=== PATIENT | male | born 1955 | race Caucasian/White ===

== ENCOUNTER 2022-02-16 19:26 | Inpatient (IN) | payer MEDICARE, OTHER ==
[2022-02-16] MEDS ORDERED: Vancomycin 1 GM/200 ML BAG ONE (20:13)
[2022-02-16] MEDS ORDERED: Dexamethasone 10 MG/ML VIAL ONE (20:13)
[2022-02-16 20:32] LABS: #Basophils 0.1 thou/uL (0.0-0.2); #Eosinphils 0.3 thou/uL (0.0-0.7); #Lymphocytes 3.1 thou/uL (1.20-3.40); #Monocytes 1.2 thou/uL (0.11-0.59); #Neutrophils 7.9 thou/uL (1.40-6.50); %Basophils 0.8 % (0.0-1.0); %Eosinophils 2.8 % (0.0-10.0); %Lymphocytes 24.6 % (21.0-51.0); %Monocytes 9.4 % (0.0-10.0); %Neutrophils 62.5 % (42.0-75.0); Hemoglobin 14.3 g/dL (14.0-18.0); Mean Corpuscular HGB CONC 33.2 g/dL (32.0-36.0); Mean Corpuscular Hemoglobin 31.8 pg (27.0-31.0); Platelet Count 247 thou/uL (130-400); RBC Distribution Width 11.9 % (11.5-14.5); Red Blood Cell (RBC) Count 4.51 mill/uL (4.70-6.10); White Blood Cell (WBC) Count 12.7 thou/uL (4.8-10.8)
[2022-02-16 20:42] LABS: PTT 30.5 sec (22.9-36.1); Prothrombin Time 12.9 sec (12.0-14.7)
[2022-02-16 20:55] LABS: ALT (SGPT) 11 U/L (8-55); AST (SGOT) 16 U/L (5-34); Albumin 3.9 g/dL (3.4-4.8); Alkaline Phosphatase 55 U/L (40-110); Anion Gap 12 mmol/L (10-20); BUN (Urea Nitrogen) 13 mg/dL (8.4-25.7); Bilirubin, Total 1.4 mg/dL (0.2-1.2); Calc. Creatinine Clearance 0 mL/min (70-130); Calcium 9.2 mg/dL (7.8-10.44); Carbon Dioxide 25 mmol/L (23-31); Globulin 3.7 g/dL (2.4-3.5); Glucose 117 mg/dL (80-115); Protein, Total 7.6 g/dL (5.8-8.1); Sodium 137 mmol/L (136-145)
[2022-02-16 21:02] LABS: Chloride 104 mmol/L (98-107)
[2022-02-16 21:21] LABS: SARS-CoV-2 NAA Rapid Test Not Detected (NotDetected)
[2022-02-16] MEDS ORDERED: Morphine 2 MG/ML VIAL SLOW IVP PRN (21:51)
[2022-02-16] MEDS ORDERED: hydrALAZINE 20 MG/ML VIAL SLOW IVP PRN (21:51)
[2022-02-16] MEDS ORDERED: Bisacodyl 5 MG TAB PO PRN (21:53)
[2022-02-16] MEDS ORDERED: Ondansetron PF 4 MG/2 ML Vial IVP PRN (21:53)
[2022-02-16] MEDS ORDERED: Acetaminophen 325 MG TAB PO PRN (21:53)
[2022-02-16] MEDS ORDERED: Zolpidem Tartrate 5 MG TAB PO PRN (21:53)
[2022-02-16] MEDS ORDERED: HYDROcodone/Acetaminophen 5/325 mg Tablet PO PRN (21:53)
[2022-02-16] MEDS ORDERED: Amlodipine 10 MG TAB PO SCH (22:00)
[2022-02-16] MEDS ORDERED: Cefepime 2 GM VIAL ONE (22:03)
[2022-02-16 22:58] VITALS: BMI 30.3
[2022-02-16] MEDS ORDERED: Enoxaparin Sodium 30 MG/0.3 ML SYRINGE SC SCH (23:15)
[2022-02-16] MEDS: Sodium Chloride 0.9% 1,000 ML IV SCH (23:28)
[2022-02-17 05:40] LABS: #Monocytes 0.1 thou/uL (0.11-0.59); #Neutrophils 5.7 thou/uL (1.40-6.50); %Basophils 0.3 % (0.0-1.0); %Eosinophils 0.2 % (0.0-10.0); %Lymphocytes 15.1 % (21.0-51.0); %Monocytes 0.7 % (0.0-10.0); %Neutrophils 83.7 % (42.0-75.0); Hemoglobin 14.7 g/dL (14.0-18.0); Mean Corpuscular HGB CONC 32.7 g/dL (32.0-36.0); Mean Corpuscular Hemoglobin 31.4 pg (27.0-31.0); Mean Corpuscular Volume 96.1 fL (78.0-98.0); Mean Platelet Volume 7.4 fL (7.4-10.4); Platelet Count 227 thou/uL (130-400); RBC Distribution Width 11.7 % (11.5-14.5); Red Blood Cell (RBC) Count 4.68 mill/uL (4.70-6.10); White Blood Cell (WBC) Count 6.8 thou/uL (4.8-10.8)
[2022-02-17 05:45] LABS: ALT (SGPT) 11 U/L (8-55); AST (SGOT) 14 U/L (5-34); Albumin 3.9 g/dL (3.4-4.8); Alkaline Phosphatase 57 U/L (40-110); Anion Gap 13 mmol/L (10-20); BUN (Urea Nitrogen) 15 mg/dL (8.4-25.7); Bilirubin, Total 0.9 mg/dL (0.2-1.2); Calc. Creatinine Clearance 101 mL/min (70-130); Calcium 9.3 mg/dL (7.8-10.44); Carbon Dioxide 21 mmol/L (23-31); Chloride 106 mmol/L (98-107); Globulin 3.6 g/dL (2.4-3.5); Glucose 180 mg/dL (80-115); Potassium 4.5 mmol/L (3.5-5.1); Protein, Total 7.5 g/dL (5.8-8.1); Sodium 135 mmol/L (136-145)
[2022-02-17] MEDS: Vancomycin HCl 1.5 GM in Sodium Chloride 0.9% 250 ML 300 ML IVPB SCH ×2 (06:57→17:58)
[2022-02-17] MEDS ORDERED: Dexamethasone 10 MG in Sodium Chloride 0.9% 50 ML IVPB SCH (09:00)
[2022-02-17] MEDS: Losartan 25 MG TAB PO SCH (09:22)
[2022-02-17] MEDS: Cefepime 1 GM in Sodium Chloride 0.9% 100 ML IVPB SCH ×2 (09:23→21:09)
[2022-02-17] MEDS: Enoxaparin Sodium 30 MG/0.3 ML SYRINGE SC SCH (09:23)
[2022-02-17] MEDS: Famotidine 20 MG TAB PO SCH ×2 (09:23→21:10)
[2022-02-17] MEDS: Amlodipine 10 MG TAB PO SCH (09:23)
[2022-02-17] MEDS ORDERED: Lidocaine 1% w/Epinephrine 1:100K 20 ML VIAL ONE (11:19)
[2022-02-17] MEDS ORDERED: AFRIN NASAL MIST 15 ML BOT ONE (11:19)
[2022-02-17] MEDS ORDERED: fentaNYL Citrate/PF 100 MCG/2 ML SYRINGE ONE (11:24)
[2022-02-17] MEDS ORDERED: Ondansetron PF 4 MG/2 ML Vial ONE (11:57)
[2022-02-17] MEDS ORDERED: Glycopyrrolate 0.2 MG/ML 5 ML SYRINGE ONE (11:57)
[2022-02-17] MEDS ORDERED: ePHEDrine 50 MG/ML VIAL ONE (11:57)
[2022-02-17] MEDS ORDERED: PHENYLEPHRINE-NS 100 MCG/ML 10 ML SYRINGE ONE (11:57)
[2022-02-17] MEDS ORDERED: PROPOFOL 200 MG/20 ML VIAL ONE (11:57)
[2022-02-17] MEDS ORDERED: Dexamethasone 20 MG/5 ML VIAL ONE (11:57)
[2022-02-17] MEDS ORDERED: Rocuronium Bromide 10 MG/ML (10ML VIAL) ONE (11:57)
[2022-02-17] MEDS ORDERED: Bacitracin Zinc Ointment 30 gm TUBE ONE (12:46)
[2022-02-17] MEDS: Dexamethasone 4 mg/ml Vial SLOW IVP SCH (15:16)
[2022-02-17] MEDS: Sodium Chloride 0.65% Nasal 44 ML BOT EA NARE SCH ×2 (17:58→21:10)
[2022-02-17] MEDS: Sodium Chloride 0.9% 1,000 ML IV SCH (21:12)
[2022-02-18] MEDS: Vancomycin HCl 1.5 GM in Sodium Chloride 0.9% 250 ML 300 ML IVPB SCH ×2 (05:45→16:47)
[2022-02-18 06:31] LABS: Anion Gap 12 mmol/L (10-20); BUN (Urea Nitrogen) 16 mg/dL (8.4-25.7); Calc. Creatinine Clearance 106 mL/min (70-130); Carbon Dioxide 25 mmol/L (23-31); Chloride 106 mmol/L (98-107); Glucose 162 mg/dL (80-115); Sodium 138 mmol/L (136-145)
[2022-02-18 06:32] LABS: Vancomycin, Trough 11.9 ug/mL
[2022-02-18 06:34] LABS: Hemoglobin 13.5 g/dL (14.0-18.0); Mean Corpuscular HGB CONC 33.9 g/dL (32.0-36.0); Mean Corpuscular Volume 97.4 fL (78.0-98.0); Mean Platelet Volume 7.5 fL (7.4-10.4); Platelet Count 224 thou/uL (130-400); RBC Distribution Width 11.8 % (11.5-14.5); White Blood Cell (WBC) Count 22.3 thou/uL (4.8-10.8)
[2022-02-18 08:16] LABS: Band 14 % (5-11); Lymphocytes 6 % (21-51); MDiff Complete? YES; Monocytes 3 % (0-10); Neutrophil 77 % (42-75); Platelet Morphology Comment Appears Adequate; RBC Morphology Normal
[2022-02-18] MEDS: Losartan 25 MG TAB PO SCH (08:44)
[2022-02-18] MEDS: Enoxaparin Sodium 30 MG/0.3 ML SYRINGE SC SCH (08:44)
[2022-02-18] MEDS: Famotidine 20 MG TAB PO SCH ×2 (08:44→22:10)
[2022-02-18] MEDS: Amlodipine 10 MG TAB PO SCH (08:44)
[2022-02-18] MEDS: Cefepime 1 GM in Sodium Chloride 0.9% 100 ML IVPB SCH ×2 (08:45→22:09)
[2022-02-18] MEDS: Dexamethasone 4 mg/ml Vial SLOW IVP SCH (08:48)
[2022-02-18] MEDS: Sodium Chloride 0.65% Nasal 44 ML BOT EA NARE SCH ×4 (08:54→22:10)
[2022-02-18] MEDS: Sodium Chloride 0.9% 1,000 ML IV SCH (16:48)
[2022-02-19] MEDS: Sodium Chloride 0.9% 1,000 ML IV SCH ×2 (01:38→14:34)
[2022-02-19] MEDS: Vancomycin HCl 1.5 GM in Sodium Chloride 0.9% 250 ML 300 ML IVPB SCH (05:44)
[2022-02-19] MEDS: Sodium Chloride 0.65% Nasal 44 ML BOT EA NARE SCH ×3 (09:00→16:31)
[2022-02-19] MEDS: Dexamethasone 4 mg/ml Vial SLOW IVP SCH (09:00)
[2022-02-19] MEDS: Cefepime 1 GM in Sodium Chloride 0.9% 100 ML IVPB SCH (09:00)
[2022-02-19] MEDS: Enoxaparin Sodium 30 MG/0.3 ML SYRINGE SC SCH (09:01)
[2022-02-19] MEDS: Famotidine 20 MG TAB PO SCH (09:01)
[2022-02-19] MEDS: Losartan 25 MG TAB PO SCH (09:01)
[2022-02-19] MEDS: Amlodipine 10 MG TAB PO SCH (09:01)
[2022-02-19 11:45] VITALS: TEMP 97.3
[2022-02-19 15:51] VITALS: BP 127/81
== END 2022-02-19 16:58 | disposition home or self-care (01) | DRG 144 ==
LOC: ERS 19:26 → SURG A 21:38 → OBSVTOIN 02-17 12:48
PROVIDERS: ADMIT Internal Medicine; ATTEND Hospitalist
PROC: 09BM8ZZ Excision of Nasal Septum, Via Natural or Artificial Opening Endoscopic (ICD-10-PCS; principal; 2022-02-17)
PROC: 09BL8ZZ Excision of Nasal Turbinate, Via Natural or Artificial Opening Endoscopic (ICD-10-PCS; 2022-02-17)
PROC: 09BX8ZZ Excision of Left Sphenoid Sinus, Via Natural or Artificial Opening Endoscopic (ICD-10-PCS; 2022-02-17)
PROC: 09BW8ZZ Excision of Right Sphenoid Sinus, Via Natural or Artificial Opening Endoscopic (ICD-10-PCS; 2022-02-17)
PROC: 09BV8ZZ Excision of Left Ethmoid Sinus, Via Natural or Artificial Opening Endoscopic (ICD-10-PCS; 2022-02-17)
PROC: 09BU8ZZ Excision of Right Ethmoid Sinus, Via Natural or Artificial Opening Endoscopic (ICD-10-PCS; 2022-02-17)
PROC: 09BT8ZZ Excision of Left Frontal Sinus, Via Natural or Artificial Opening Endoscopic (ICD-10-PCS; 2022-02-17)
PROC: 09BQ8ZZ Excision of Right Maxillary Sinus, Via Natural or Artificial Opening Endoscopic (ICD-10-PCS; 2022-02-17)
PROC: 09BR8ZZ Excision of Left Maxillary Sinus, Via Natural or Artificial Opening Endoscopic (ICD-10-PCS; 2022-02-17)
PROC: 09BS8ZZ Excision of Right Frontal Sinus, Via Natural or Artificial Opening Endoscopic (ICD-10-PCS; 2022-02-17)
PROC: 8E09XBZ Computer Assisted Procedure of Head and Neck Region (ICD-10-PCS; 2022-02-17)
DX: J01.10 Acute frontal sinusitis, unspecified (principal); H05.011 Cellulitis of right orbit; Z20.822 Contact with and (suspected) exposure to COVID-19; J01.40 Acute pansinusitis, unspecified; J33.9 Nasal polyp, unspecified; J32.4 Chronic pansinusitis; J34.2 Deviated nasal septum; J34.3 Hypertrophy of nasal turbinates; I10 Essential (primary) hypertension; J32.1 Chronic frontal sinusitis; J34.89 Other specified disorders of nose and nasal sinuses; Z28.21 Immunization not carried out because of patient refusal; Z98.890 Other specified postprocedural states; Z88.0 Allergy status to penicillin
CPT/HCPCS: 36415; 71045; 80048; 80053; 80202; 84443; 85025; 85610; 85730; 87040; 87070; 87076; 87077; 87205; 93005; 96365; 96366; 96367; 96372; 96375; G0378; J0692; J1100; J1650; J2405; J2704; J3370; J3490; J7050; U0002